=== PATIENT | male | born 1980 | race Caucasian/White ===

== ENCOUNTER 2016-12-06 21:53 | Emergency (ER) | payer BC, OTHER ==
[2016-12-06 22:08] VITALS: BP 119/64
[2016-12-06] MEDS ORDERED: Ibuprofen TAB* 600 MG PO ONE (22:17)
--- NOTE | 2016-12-06 22:49 | UC ---
Shoulder Pain HPI - HPI Summary HPI Summary: fell on to left shoulder snow boarding this morning - History of Current Complaint Chief Complaint: UCUpperExtremity Stated Complaint: SHOULDER INJURY Time Seen by Provider: 12/06/16 22:17 Hx Obtained From: Patient Onset/Duration: Sudden Onset, Lasting Hours - 12 hours ago, Still Present Timing: Constant Severity Initially: Moderate Severity Currently: Moderate Location Of Pain: Is Discrete @ - left anterior ac joint Character: Aching Aggravating Factor(s): Movement, Lifting Alleviating Factor(s): Rest Related History: Dominant Hand Right - Allergies/Home Medications Allergies/Adverse Reactions: Allergies Allergy/AdvReac Type Severity Reaction Status Date / Time No Known Allergies Allergy Verified 12/06/16 22:09 Home Medications: Home Medications Ibuprofen TAB* [Motrin TAB* 800 MG] 12/06/16 [History] PMH/Surg Hx/FS Hx/Imm Hx Previously Healthy: Yes - knee problems - Surgical History Surgical History: None - Family History Known Family History: Positive: None - Social History Occupation: Employed Full-time - construction Lives: With Family Alcohol Use: Rare Substance Use Type: None Smoking Status (MU): Heavy Every Day Tobacco Smoker Have You Smoked in the Last Year: Yes Cessation Counseling: Counseled 3+Min - 10 Min Review of Systems Constitutional: Negative Skin: Negative Eyes: Negative ENT: Negative Respiratory: Negative Cardiovascular: Negative Gastrointestinal: Negative Genitourinary: Negative Motor: Negative Neurovascular: Negative Musculoskeletal: Negative, Arthralgia - left ac /clavicle aera Neurological: Negative Psychological: Negative All Other Systems Reviewed And Are Negative: Yes Physical Exam Triage Information Reviewed: Yes Appearance: Well-Appearing, No Pain Distress, Well-Nourished Vital Signs: Initial Vital Signs Temp 97.1 F 12/06/16 22:05 Pulse 83 12/06/16 22:05 Resp 18 12/06/16 22:05 BP 119/64 12/06/16 22:05 Pulse Ox 98 12/06/16 22:05 Vital Signs Reviewed: Yes Eye Exam: Normal Eyes: Positive: Conjunctiva Clear ENT Exam: Normal ENT: Positive: Normal ENT inspection, Hearing grossly normal, Pharynx normal, TMs normal. Negative: Pharyngeal erythema, Nasal congestion, Nasal drainage, Tonsillar swelling, Tonsillar exudate, Trismus, Muffled/hoarse voice Dental Exam: Normal Neck exam: Normal Neck: Positive: Supple, Nontender, No Lymphadenopathy Respiratory Exam: Normal Respiratory: Positive: Chest non-tender, Lungs clear, Normal breath sounds, No respiratory distress, No accessory muscle use Cardiovascular Exam: Normal Cardiovascular: Positive: RRR, No Murmur, Pulses Normal, Brisk Capillary Refill Musculoskeletal Exam: Normal Musculoskeletal: Positive: Strength Intact, ROM Intact, No Edema Neurological Exam: Normal Neurological: Positive: Alert, Muscle Tone Normal Psychological Exam: Normal Skin Exam: Normal Diagnostics - Radiology No standard instances Xray Interpretation: Positive (See Comments) - AC joint widening Radiology Interpretation Completed By: Radiologist Shoulder Course/Dx - Course Assessment/Plan: rice, sling, pain control, ibuprofen, follow with ortho - Differential Dx/Diagnosis Differential Diagnosis/HQI/PQRI: AC Separation, Rotator Cuff Injury, Sprain, Strain Provider Diagnoses: Left AC seperation Discharge - Discharge Plan Condition: Stable Disposition: HOME Patient Education Materials: Ibuprofen (By mouth), Acromioclavicular Separation (ED), How to Use a Sling (GEN), RICE Therapy (ED) Referrals: Adrianna Blackwell MD [Primary Care Provider] - Dami Edwards MD [Medical Doctor] - 4 Days
--- NOTE | 2016-12-06 23:06 | RAD ---
Indication: AC joint pain. 3 views of left clavicle demonstrates no fracture. There is mild widening of the AC joint. Possibility of AC joint separation should be considered. IMPRESSION: No fracture of the clavicle is noted. Widening of the AC joint.
[2016-12-06] MEDS ORDERED: HYDROcodone/ACETAMIN 5-325 MG* 1 TAB PO ONE (23:10)
== END 2016-12-06 23:20 | disposition home or self-care (01) ==
LOC: UCEAST 21:53
DX: S43.102A Unspecified dislocation of left acromioclavicular joint, initial encounter (principal); W19.XXXA Unspecified fall, initial encounter; F17.200 Nicotine dependence, unspecified, uncomplicated; Y93.23 Activity, snow (alpine) (downhill) skiing, snowboarding, sledding, tobogganing and snow tubing; Y92.9 Unspecified place or not applicable
CPT/HCPCS: 99213; A9270-GY; G0463